=== PATIENT | male | born 1985 | race American Indian/Alaskan Native ===

== ENCOUNTER 2017-04-28 13:13 | Emergency (ER) | payer SELFPAY ==
[2017-04-28 13:27] VITALS: BP 126/69
--- NOTE | 2017-04-28 17:03 | Emergency Department Report ---
ED Rash HPI - HPI Chief Complaint: Skin/Abscess/Foreign Body Stated Complaint: RASH LEFT SIDE LEG Time Seen by Provider: 04/28/17 16:51 Duration: Today Location: Lower Extremities (patient reports rash to left hip) Suspected Cause: Unknown Rash Symptoms: Yes Itching, Yes Peeling, No Facial Swelling, No Tongue/Oral Swelling, No Breathing Difficulties, No Choking Sensation, No Wheezing/Dyspnea, No Blistering, No Fever, No Lightheaded, No Malaise, No Myalgias Severity: severe (patient reports itching in with pain at 10 out of 10 to rash area.) Other History: This is a 32-year-old male patient reports that he has rash to his left hip. That started small and now it is spreading. He said it's painful and itching and 10 of the 10. There is described as being sore. No [id number] medication taken. Denies any fever or chills. Denies any cough, wheezing, nausea vomiting, shortness of breath or chest pain. ED Review of Systems ROS: Stated complaint: RASH LEFT SIDE LEG Other details as noted in HPI Comment: All other systems reviewed and negative Constitutional: no symptoms reported ENT: denies: ear pain, throat pain, congestion Respiratory: no symptoms reported Cardiovascular: denies: chest pain, palpitations, dyspnea on exertion, orthopnea , edema, syncope Gastrointestinal: denies: nausea, vomiting Musculoskeletal: denies: back pain, arthralgia, myalgia Skin: rash (painful and itching), pruritus Neurological: denies: headache ED Past Medical Hx - Past Medical History Previous Medical History?: Yes Hx Seizures: Yes - Surgical History Past Surgical History?: No - Family History Family history: no significant - Social History Smoking Status: Current Every Day Smoker Substance Use Type: None - Medications Home Medications: Home Medications Medication Instructions Recorded Confirmed Last Taken Type Econazole 1% [Spectazole] 1 applicatio TP BID #1 tube 04/28/17 Unknown Rx Fluconazole [Diflucan TAB] 100 mg PO QDAY #2 tablet 04/28/17 Unknown Rx Rash Exam - Exam General: Vital signs noted. No distress. Alert and acting appropriately. This is a 32-year-old male well-nourished well-developed in no acute distress. HEENT: No Periorbital Edema, No Conjuctival Injection, No Chemosis, No Perioral Edema, No Tongue Edema, No Uvular Edema, No Compromised Airway, No Drooling Lungs: Yes Good Air Exchange, No Wheezes, No Ronchi, No Stridor, No Cough, No Labored Respirations, No Retractions, No Use of Accessory Muscles, No Other Abnormal Lung Sounds Heart: Yes Regular, No Murmur Skin: Yes Erythema, Yes Other (noted solitary circular area to left distal buttock, nontender to palpate, borders are well demarcated with clearing to Center. Appearance of a fungal rash. No induration. No drainage.), No Urticarial Rash, No Maculopapular Rash, No Morbilliform rash, No Bulla(e), No Excoriations, No Weeping, No Tenderness, No Edema, No Encrustations Other: Positive: Abdomen Normal, Neurologic Normal, Musculoskeletal Normal ED Course Vital Signs 04/28/17 13:21 Temperature 97.8 F Pulse Rate 92 H Respiratory 20 Rate Blood Pressure 126/69 Blood Pressure 126/69 [Left] O2 Sat by Pulse 97 Oximetry - Reevaluation(s) Reevaluation #1: 04/28/17 17:59 Patient is stable and in no acute distress during ED stay ED Medical Decision Making - Medical Decision Making ED Course: This is a 32-year-old male here complaining of rash that is getting worse. Physical findings for fungal rash left buttocks. I discussed the patient diagnosed the treatment plan and he voiced understanding. Patient will be discharged home with prescription for Diflucan 1 once daily 2 days and antifungal cream, Econazone twice daily for 14 days. I discussed with him that fungal rash usually takes a while to heal so he will need to follow-up with bar hostess if rash is not healing and if rash is getting worse. Also discussed with him that rash is contagious so he needs to practice good handwashing. Critical care attestation.: If time is entered above; I have spent that time in minutes in the direct care of this critically ill patient, excluding procedure time. ED Disposition Clinical Impression: Ringworm of body, Itchy skin Disposition: [id number] TO HOME OR SELFCARE Is pt being admited?: No Does the pt Need Aspirin: No Condition: Stable Instructions: Tinea Corporis (ED), Itchy Skin (ED) Additional Instructions: Please keep affected area clean and dry You have a fungal rash and was ordered antifungal medication to include Diflucan onto take once daily 2 days and antifungal cream to apply to affected area twice daily until rash is healed. If here as she is not healing, he will need to follow up with bar hostess and if you cannot see bar hostess he can follow-up at [facility]. Keep affected area clean and dry. Practice good handwashing as this rash is contagious. Prescriptions: Econazole 1% [Spectazole] 1 applicatio TP BID #1 tube Fluconazole [Diflucan TAB] 100 mg PO QDAY #2 tablet Referrals: [facility] [Outside] - 05/03/17 JANKI PFEIFFER MD [Staff Physician] - 05/03/17 Forms: Work/School Release Form(ED)
== END 2017-04-28 18:20 | disposition home or self-care (01) ==
LOC: ED 13:13
DX: B35.4 Tinea corporis (principal); F17.210 Nicotine dependence, cigarettes, uncomplicated
CPT/HCPCS: 99282